=== PATIENT | male | born 1935 | race Caucasian/White ===

== ENCOUNTER 2023-12-27 15:39 | Emergency (ER) | payer MEDICARE ==
[2023-12-27 17:31] LABS: INR-International Normal Ratio 1.2; Prothrombin Time 15.1 sec (12.0-14.7)
[2023-12-27 17:34] LABS: #Basophils 0.1 thou/uL (0.0-0.2); #Eosinphils 0.1 thou/uL (0.0-0.7); #Lymphocytes 0.9 thou/uL (1.20-3.40); #Monocytes 0.4 thou/uL (0.11-0.59); #Neutrophils 7.8 thou/uL (1.40-6.50); %Basophils 0.8 % (0.0-1.0); %Eosinophils 1.3 % (0.0-10.0); %Lymphocytes 9.5 % (21.0-51.0); %Monocytes 4.4 % (0.0-10.0); Hemoglobin 11.7 g/dL (14.0-18.0); Mean Corpuscular HGB CONC 35.4 g/dL (32.0-36.0); Mean Corpuscular Hemoglobin 31.4 pg (27.0-31.0); Mean Corpuscular Volume 88.6 fl (78.0-98.0); Mean Platelet Volume 8.2 fL (7.4-10.4); Platelet Count 153 10x3/uL (130-400); RBC Distribution Width 14.1 % (11.5-14.5); Red Blood Cell (RBC) Count 3.72 mill/uL (4.70-6.10); White Blood Cell (WBC) Count 9.3 10x3/uL (4.8-10.8)
[2023-12-27 17:37] LABS: ALT (SGPT) 19 U/L (8-55); AST (SGOT) 19 U/L (5-34); Albumin 3.8 g/dL (3.4-4.8); Alkaline Phosphatase 87 U/L (40-110); Anion Gap 17 mmol/L (10-20); BUN (Urea Nitrogen) 20 mg/dL (8.4-25.7); Bilirubin, Total 1.9 mg/dL (0.2-1.2); Calc. Creatinine Clearance 0 mL/min (70-130); Carbon Dioxide 21 mmol/L (23-31); Chloride 107 mmol/L (98-107); Estimated GFR 63; Globulin 2.7 g/dL (2.4-3.5); Glucose 101 mg/dL (83-110); Potassium 3.7 mmol/L (3.5-5.1); Protein, Total 6.5 g/dL (5.8-8.1); Sodium 141 mmol/L (136-145)
[2023-12-27] MEDS ORDERED: Morphine 2 MG/ML VIAL ONE (18:29)
[2023-12-27 21:20] VITALS: BP 228/98; TEMP 97.6
[2023-12-27 21:29] VITALS: BMI 19.3
[2023-12-27 22:50] LABS: SARS-CoV-2 NAA Rapid Test Not Detected (NotDetected)
[2023-12-27 23:31] LABS: Troponin I 0.056 ng/mL (< 0.028)
[2023-12-28] MEDS ORDERED: Furosemide 40 MG (4 mL) VIAL ONE (00:23)
[2023-12-28] MEDS ORDERED: Aspirin Chewable 81 MG TAB ONE (00:24)
[2023-12-28 02:16] LABS: Bilirubin Negative (Negative); Blood, Urine Negative (Negative); Clarity Clear (Clear); Glucose, Urine (Dipstick) Negative (Negative); Ketone, Urine Trace mg/dL (Negative); Leukocyte Negative (Negative); Nitrite Negative (Negative); Protein, Urine (Dipstick) > or equal to 300 mg/dL (Neg-Trace); Specific Gravity, Urine 1.025 (1.005-1.030)
[2023-12-28 02:20] LABS: Troponin I 0.076 ng/mL (< 0.028)
[2023-12-28 02:56] LABS: Bacteria/HPF None Seen HPF (None Seen); CAUTI Indications for Culture Dysuria,urgency,freq; Squamous Epithelial 0-3 HPF (0-3); WBC/HPF None Seen HPF (0-3)
[2023-12-28 02:58] LABS: Urine Culture Reflex No No
[2023-12-28] MEDS ORDERED: Metoprolol Tartrate 5 MG (5 mL) VIAL ONE ×2 (07:41→08:53)
[2023-12-28 10:11] LABS: White Blood Cell (WBC) Count 8.5 10x3/uL (4.8-10.8)
[2023-12-28 10:12] LABS: %Eosinophils 4.3 % (0.0-10.0); %Lymphocytes 11.8 % (21.0-51.0); %Monocytes 4.6 % (0.0-10.0); %Neutrophils 78.9 % (42.0-75.0); Hematocrit 30.5 % (42.0-52.0); Hemoglobin 10.4 g/dL (14.0-18.0); Manual Diff?? NO; Mean Corpuscular HGB CONC 34.1 g/dL (32.0-36.0); Mean Corpuscular Hemoglobin 30.6 pg (27.0-31.0); Mean Corpuscular Volume 89.6 fl (78.0-98.0); Mean Platelet Volume 7.7 fL (7.4-10.4); Platelet Count 133 10x3/uL (130-400); RBC Distribution Width 14.5 % (11.5-14.5)
[2023-12-28 10:13] LABS: #Eosinphils 0.4 thou/uL (0.0-0.7); #Monocytes 0.4 thou/uL (0.11-0.59); #Neutrophils 6.7 thou/uL (1.40-6.50); %Basophils 0.5 % (0.0-1.0); MDiff Complete? YES
[2023-12-28 10:21] LABS: INR-International Normal Ratio 1.2; Prothrombin Time 15.1 sec (12.0-14.7)
[2023-12-28 10:22] LABS: PTT 31.4 sec (22.9-36.1)
[2023-12-28 10:28] LABS: ALT (SGPT) 18 U/L (8-55); AST (SGOT) 22 U/L (5-34); Albumin 3.3 g/dL (3.4-4.8); Alkaline Phosphatase 76 U/L (40-110); Anion Gap 15 mmol/L (10-20); BUN (Urea Nitrogen) 23 mg/dL (8.4-25.7); Calc. Creatinine Clearance 38 mL/min (70-130); Calcium 8.7 mg/dL (7.8-10.44); Carbon Dioxide 24 mmol/L (23-31); Chloride 107 mmol/L (98-107); Estimated GFR 61; Globulin 2.4 g/dL (2.4-3.5); Glucose 130 mg/dL (83-110); Potassium 3.8 mmol/L (3.5-5.1); Protein, Total 5.7 g/dL (5.8-8.1); Sodium 142 mmol/L (136-145)
[2023-12-28 10:30] LABS: Bilirubin, Total 1.4 mg/dL (0.2-1.2)
[2023-12-28] MEDS ORDERED: hydrALAZINE 20 MG/ML VIAL ONE (13:02)
== END 2023-12-28 15:58 | disposition short-term general hospital (02) ==
LOC: BURERS 15:39 → UNDOADMIN 17:10 → BURMED 17:10 → UNDODISIN 21:50 → BURERS 12-28 15:58
DX: S82.112A Displaced fracture of left tibial spine, initial encounter for closed fracture (principal); I48.92 Unspecified atrial flutter; I10 Essential (primary) hypertension; E78.5 Hyperlipidemia, unspecified; Z79.899 Other long term (current) drug therapy; W18.30XA Fall on same level, unspecified, initial encounter
CPT/HCPCS: 0241U; 29505; 36415; 80053; 81001; 83880; 84484; 85025; 85610; 85730; 96374; 96375; 96376; J2272